=== PATIENT | female | born 1985 | race Caucasian/White ===

== ENCOUNTER 2016-12-07 18:21 | Inpatient (IN) | payer OTHER, BC ==
[~2016-12-07] VITALS: Ht 154.9 cm; Wt 68.8 kg
[~2016-12-07 18:21] MED LIST: ADDERALL20 MG; ADVAIR HFA120 INHALA IH; ALDOMET500 MG PO; AMPHETAMINE SAL20 MG PO; ATROVENT 00.5 MG/2.5 IH; ATROVENT H200 INHALA IH; COLACE50 MG PO; DULERA 100 MCG/13 GM IH; DUONEB 2.5-0.5 M3 ML AEROSOL; ENDOCET 5-3251 EACH PO; FISH OIL 1,001000 M1 PO; FOLIC ACID0.8 MG PO; IBUPROFEN800 MG PO; IMITREX; IMITREX100 MG PO; IMITREX20 MG NS; IMITREX50 MG; LATUDA20 MG PO; LEVO-T88 MCG PO; MORGIDOX100 MG PO; NAPROXEN500 MG PO; NEPHRO-VITE,1 TABLET PO; NUVARING VAGIN1 EACH; PREDNISONE10 MG PO; PRENATAL TABLE1 EAC3 PO; PROAIR HFA8.5 GM IH; PROVENTIL,2.5 MG/0.5 IH; PROVENTIL,2.5 MG/3 M IH; STOOL SOFTENER100 MG PO; SUPER B-50 COM1 EACH PO; SYNTHROID75 MCG PO; TYLENOL WITH C1 EACH PO; VENTOLIN HFA18 GM IH; VENTOLIN17 GM; ZOFRAN ODT8 MG PO; ZYRTEC10 M2 PO; ZYRTEC10 M3 PO; [UNRECOGNIZED DRUG - OTHER]
[2016-12-07 19:22] LABS: EOSINOPHIL (%) 1.8 % (0-5); EOSINOPHIL COUNT 0.2 K/uL (0-0.3); HEMATOCRIT 30.7 % (36.0-46.0); IMMATURE GRANULOCYTE (%) 0.5 % (0.0-0.7); IMMATURE GRANULOCYTE COUNT 0.1 K/uL; INSTRUMENT ABS NEUTROPHIL CT 8.3 K/uL; LYMPHOCYTE COUNT 1.9 K/uL (1.0-2.8); MCH 25.3 PG (29.0-34.0); MCHC 32.6 G/DL (30.0-36.0); MCV 77.7 FL (83-99); MEAN PLAT.VOLUME 10.4 uM^3 (9.5-12.4); MONOCYTE (%) 3.6 % (3-12); MONOCYTE COUNT 0.4 K/uL (0-0.8); NEUTROPHIL (%) 76.2 % (45-76); NEUTROPHIL COUNT 8.3 K/uL (1.8-6.4); PLATELET COUNT 249 K/uL (156-360); RBC DIS.WIDTH-CV 13.9 % (11.8-14.6); RBC DIS.WIDTH-SD 39.7 % (39-53); RED BLOOD COUNT 3.95 M/uL (3.80-5.20); WHITE BLOOD COUNT 10.9 K/uL (4.1-10.2)
[2016-12-07 19:26] LABS: BASE EXCESS -3.2 mEq/L (-3 to +3); BICARBONATE 21.1 mEq/L (22-26); CARBOXY HGB 0.8 % (0-5); METHEMOGLOBIN 0.8 % (0-1.5); PCO2 34 mm Hg (35-45); PO2 252 mm Hg (80-100)
[2016-12-07 19:27] LABS: COMMENTS - BLOOD GASES C+A+; DEVICE NIV; MODE SPONT; PEEP 10 CM/H20; PRES. SUPPORT 10 CM/H2O; SITE RR; TOTAL RESP RATE 26 resp/min
[2016-12-07 19:39] LABS: CHLORIDE 105 mEq/L (99-109); POTASSIUM 3.1 mEq/L (3.7-5.4); SODIUM 136 mEq/L (136-147)
[2016-12-07 19:41] LABS: GLUCOSE 127 mg/dL (70-99)
[2016-12-07 19:42] LABS: ANION GAP 10 MEQ/L (2-14)
[2016-12-07 19:45] LABS: GFR ESTIMATE (CALCULATED) > 59 mL/min/
[2016-12-07 19:46] LABS: UREA NITROGEN (BUN) 7 mg/dL (9-23)
[2016-12-07 19:50] LABS: FI02 30 %
[2016-12-07 21:44] LABS: D-DIMER ELISA 0.22 mg/L FEU (< 0.57)
[2016-12-07] MEDS ORDERED: DUONEB 2.5-0.5 M3 ML AEROSOL (22:13)
[2016-12-07] MEDS ORDERED: PROVENTIL,2.5 MG/3 M IH (22:14)
[2016-12-07] MEDS ORDERED: SYNTHROID112 MCG PO (22:16)
[2016-12-07] MEDS ORDERED: ADVAIR HFA120 INHAL1 IH (22:16)
[2016-12-07] MEDS ORDERED: METFORMIN HCL500 M1 PO (22:17)
[2016-12-07] MEDS ORDERED: PRENATAL TABLE1 EAC3 PO (22:17)
[2016-12-07] MEDS ORDERED: FOLIC ACID0.8 MG PO (22:17)
[2016-12-07 23:31] VITALS: BP 128/81
[2016-12-08] VITALS (17 sets, daily range): BP systolic 106–130; BP diastolic 55–98
[2016-12-08 00:48] LABS: METH RESISTANT S AUREUS PCR NEGATIVE (NEGATIVE)
[2016-12-08 00:53] LABS: PROBE CHECK PASS; SPECIMEN PROCESSING CONTROL PASS
[2016-12-08 05:42] LABS: HEMATOCRIT 29.1 % (36.0-46.0); MCH 25.3 PG (29.0-34.0); MCHC 32.3 G/DL (30.0-36.0); MCV 78.2 FL (83-99); MEAN PLAT.VOLUME 11.9 uM^3 (9.5-12.4); NRBC (%) 0.2 /100 WBC (0-0); PLATELET COUNT 257 K/uL (156-360); RBC DIS.WIDTH-CV 14.5 % (11.8-14.6); RBC DIS.WIDTH-SD 40.9 % (39-53); RED BLOOD COUNT 3.72 M/uL (3.80-5.20); WHITE BLOOD COUNT 12.5 K/uL (4.1-10.2)
[2016-12-08 06:14] LABS: ANION GAP 12 MEQ/L (2-14); CHLORIDE 107 MEQ/L (99-109); GFR ESTIMATE (CALCULATED) > 59 mL/min/; GLUCOSE 126 mg/dL (70-99); SAMPLE HEMOLYSIS CHECK 0; SAMPLE ICTERIC CHECK 0; SAMPLE LIPEMIA CHECK 0; SODIUM 138 MEQ/L (136-147); UREA NITROGEN (BUN) 3 mg/dL (9-23)
[2016-12-08 06:16] LABS: POTASSIUM 4.4 MEQ/L (3.7-5.4)
[2016-12-09] VITALS (8 sets, daily range): BP systolic 101–131; BP diastolic 49–78
[2016-12-09 06:17] LABS: EOSINOPHIL (%) 0 % (0-5); IMMATURE GRANULOCYTE (%) 2.9 % (0.0-0.7); IMMATURE GRANULOCYTE COUNT 0.6 K/uL; INSTRUMENT ABS NEUTROPHIL CT 15.9 K/uL; LYMPHOCYTE COUNT 1.7 K/uL (1.0-2.8); MCH 25.3 PG (29.0-34.0); MCHC 32.5 G/DL (30.0-36.0); MCV 77.8 FL (83-99); MEAN PLAT.VOLUME 11.4 uM^3 (9.5-12.4); MONOCYTE (%) 3.8 % (3-12); MONOCYTE COUNT 0.7 K/uL (0-0.8); NEUTROPHIL (%) 84.4 % (45-76); NEUTROPHIL COUNT 15.9 K/uL (1.8-6.4); PLATELET COUNT 276 K/uL (156-360); RBC DIS.WIDTH-CV 14.6 % (11.8-14.6); RBC DIS.WIDTH-SD 41.1 % (39-53)
[2016-12-09 06:34] LABS: ANION GAP 11 MEQ/L (2-14); CHLORIDE 106 MEQ/L (99-109); GFR ESTIMATE (CALCULATED) > 59 mL/min/; GLUCOSE 126 mg/dL (70-99); POTASSIUM 4.2 MEQ/L (3.7-5.4); SAMPLE HEMOLYSIS CHECK 0; SAMPLE ICTERIC CHECK 0; SAMPLE LIPEMIA CHECK 0; SODIUM 139 MEQ/L (136-147); UREA NITROGEN (BUN) 9 mg/dL (9-23)
[2016-12-09 06:37] LABS: WHITE BLOOD COUNT 18.8 K/uL (4.1-10.2)
[2016-12-10 00:07] VITALS: BP 122/75
[2016-12-10 03:10] VITALS: BP 124/74
[2016-12-10 08:00] VITALS: BP 122/65
[2016-12-10] MEDS ORDERED: DELTASONE20 M1 PO (11:53)
[2016-12-10] MEDS ORDERED: AZITHROMYCIN250 MG1 PO (11:56)
== END 2016-12-10 13:02 | disposition home or self-care (01) | DRG 781 ==
LOC: EME → EDBD 18:21 → 2EAST 22:32 → EDOF 22:32 → 4WEST 22:32 → 2EAST 12-09 08:10
PROVIDERS: Emergency Medicine; Internal Medicine Critical Care Medicine
PROC: 5A09358 Assistance with Respiratory Ventilation, Less than 24 Consecutive Hours, Intermittent Positive Airway Pressure (ICD-10-PCS; principal; 2016-12-08)
DX: O99.511 Diseases of the respiratory system complicating pregnancy, first trimester (principal); J96.01 Acute respiratory failure with hypoxia; J45.901 Unspecified asthma with (acute) exacerbation; O10.911 Unspecified pre-existing hypertension complicating pregnancy, first trimester; O99.281 Endocrine, nutritional and metabolic diseases complicating pregnancy, first trimester; E06.3 Autoimmune thyroiditis; O99.341 Other mental disorders complicating pregnancy, first trimester; F90.9 Attention-deficit hyperactivity disorder, unspecified type; Z3A.12 12 weeks gestation of pregnancy; Z88.1 Allergy status to other antibiotic agents
CPT/HCPCS: 36600; 71010; 80048; 82803; 85025; 85027; 85379; 87070; 87205; 87641; 93005; 94002; 94640 76; 94644; 94645; 94760; 94799; 99202; 99281; 99285; J1100; J1650; J2270; J2930; J3105; J3475; J7644; S0028

== ENCOUNTER → 2017-01-08 | Outpatient (CLI) | payer OTHER, BC ==
[~2017-01-08] MED LIST changes: +ADVAIR HFA120 INHAL1 IH; +AZITHROMYCIN250 MG1 PO; +DELTASONE20 M1 PO; +METFORMIN HCL500 M1 PO; +SYNTHROID112 MCG PO
== END | disposition home or self-care (01) ==
LOC: CDC 12:02
DX: O16.9 Unspecified maternal hypertension, unspecified trimester (principal)
CPT/HCPCS: 93000

== ENCOUNTER 2017-03-03 00:08 | Outpatient (CLI) | payer OTHER, BC ==
[~2017-03-03] VITALS: Ht 154.9 cm; Wt 77.7 kg
[2017-03-03 00:26] VITALS: BP 131/81
[2017-03-03 04:10] VITALS: BP 111/64
[2017-03-03 07:34] VITALS: BP 119/62
[2017-03-03 08:37] VITALS: BP 123/67
== END 2017-03-03 10:09 | disposition home or self-care (01) ==
LOC: LDRP-OP 00:08 → 2WEST 00:09
DX: O9A.212 Injury, poisoning and certain other consequences of external causes complicating pregnancy, second trimester (principal); Z3A.25 25 weeks gestation of pregnancy; W03.XXXA Other fall on same level due to collision with another person, initial encounter; Y93.89 Activity, other specified; Y92.89 Other specified places as the place of occurrence of the external cause
CPT/HCPCS: 59025; 76805; G0378

== ENCOUNTER 2017-04-22 13:56 | Inpatient (IN) | payer OTHER, BC ==
[2017-04-22] VITALS (8 sets, daily range): BP systolic 88–122; BP diastolic 59–71
[~2017-04-22] VITALS: Ht 165.1 cm; Wt 87.5 kg
[2017-04-22 14:15] LABS: EOSINOPHIL (%) 0.8 % (0-5); EOSINOPHIL COUNT 0.1 K/uL (0-0.3); HEMATOCRIT 32.9 % (36.0-46.0); IMMATURE GRANULOCYTE (%) 1.8 % (0.0-0.7); IMMATURE GRANULOCYTE COUNT 0.2 K/uL; INSTRUMENT ABS NEUTROPHIL CT 9.6 K/uL; LYMPHOCYTE COUNT 2.5 K/uL (1.0-2.8); MCH 26.4 PG (29.0-34.0); MCHC 32.2 G/DL (30.0-36.0); MCV 81.8 FL (83-99); MEAN PLAT.VOLUME 11.7 uM^3 (9.5-12.4); MONOCYTE (%) 5.7 % (3-12); MONOCYTE COUNT 0.8 K/uL (0-0.8); NEUTROPHIL (%) 72.4 % (45-76); NEUTROPHIL COUNT 9.6 K/uL (1.8-6.4); PLATELET COUNT 209 K/uL (156-360); RBC DIS.WIDTH-CV 14.6 % (11.8-14.6); RBC DIS.WIDTH-SD 42.7 % (39-53); RED BLOOD COUNT 4.02 M/uL (3.80-5.20); WHITE BLOOD COUNT 13.2 K/uL (4.1-10.2)
[2017-04-22 14:23] LABS: CARBON DIOXIDE (BICARBONATE) 22.5 MEQ/L (20-31)
[2017-04-22 14:35] LABS: CHLORIDE 111 mEq/L (99-109); POTASSIUM 3.6 mEq/L (3.7-5.4); SODIUM 140 mEq/L (136-147)
[2017-04-22 14:37] LABS: GLUCOSE 97 mg/dL (70-99)
[2017-04-22 14:38] LABS: ANION GAP 10 MEQ/L (2-14)
[2017-04-22 14:39] LABS: TOTAL BILIRUBIN 0.1 mg/dL (0.0-1.0)
[2017-04-22 14:40] LABS: ALKALINE PHOSPHATASE 71 IU/L (3-129)
[2017-04-22 14:41] LABS: GFR ESTIMATE (CALCULATED) > 59 mL/min/
[2017-04-22 14:42] LABS: UREA NITROGEN (BUN) 5 mg/dL (9-23)
[2017-04-22 15:04] LABS: TROP-I INTERPRETATION NEGATIVE; TROPONIN-I < 0.01 ng/mL (0.0-0.30)
[2017-04-22] MEDS ORDERED: DIABETA2.5 MG PO (16:25)
[2017-04-22 18:25] LABS: METH RESISTANT S AUREUS PCR NEGATIVE (NEGATIVE)
[2017-04-22 18:48] LABS: PROBE CHECK PASS; SPECIMEN PROCESSING CONTROL PASS
[2017-04-22 22:25] LABS: POINT-OF-CARE METER ID UU13113748
[2017-04-23] VITALS (13 sets, daily range): BP systolic 99–122; BP diastolic 54–74
[2017-04-23 03:42] LABS: POINT-OF-CARE METER ID UU14162636
[2017-04-23 05:26] LABS: HEMATOCRIT 28.9 % (36.0-46.0); MCH 27.1 PG (29.0-34.0); MCHC 32.9 G/DL (30.0-36.0); MCV 82.6 FL (83-99); MEAN PLAT.VOLUME 11.5 uM^3 (9.5-12.4); PLATELET COUNT 201 K/uL (156-360); RBC DIS.WIDTH-CV 15.1 % (11.8-14.6); RBC DIS.WIDTH-SD 44.7 % (39-53); WHITE BLOOD COUNT 15.8 K/uL (4.1-10.2)
[2017-04-23 05:57] LABS: ANION GAP 10 MEQ/L (2-14); CHLORIDE 109 MEQ/L (99-109); GFR ESTIMATE (CALCULATED) > 59 mL/min/; GLUCOSE 106 mg/dL (70-99); MAGNESIUM 1.7 mg/dl (1.3-2.7); POTASSIUM 3.8 MEQ/L (3.7-5.4); SAMPLE HEMOLYSIS CHECK 0; SAMPLE ICTERIC CHECK 0; SAMPLE LIPEMIA CHECK 0; SODIUM 139 MEQ/L (136-147); UREA NITROGEN (BUN) 6 mg/dL (9-23)
[2017-04-23 10:36] LABS: POINT-OF-CARE METER ID UU14162636
[2017-04-23 14:33] LABS: POINT-OF-CARE METER ID UU14162636
[2017-04-23 19:16] LABS: POINT-OF-CARE METER ID UU13113801
[2017-04-23 22:04] LABS: POINT-OF-CARE METER ID UU13113801
[2017-04-24] VITALS (9 sets, daily range): BP systolic 106–129; BP diastolic 56–72
[2017-04-24 07:16] LABS: POINT-OF-CARE METER ID UU13113801; POINT-OF-CARE USER ID 608261309
[2017-04-24 08:54] LABS: POINT-OF-CARE METER ID UU13113801; POINT-OF-CARE USER ID 608261309
[2017-04-24 13:31] LABS: BASE EXCESS -0.6 mEq/L (-3 to +3); BICARBONATE 21.8 mEq/L (22-26); CARBOXY HGB 0.9 % (0-5); METHEMOGLOBIN 1.6 % (0-1.5); PCO2 28 mm Hg (35-45); PO2 270 mm Hg (80-100); SITE LR
[2017-04-24 13:32] LABS: COMMENTS - BLOOD GASES A+C+; DEVICE NRBM; FI02 100 %; O2 FLOW 15 L/MIN
[2017-04-24 14:07] LABS: POINT-OF-CARE METER ID UU13113801; POINT-OF-CARE USER ID 608261309
[2017-04-24 18:00] LABS: POINT-OF-CARE METER ID UU13113801; POINT-OF-CARE USER ID 608261309
[2017-04-24 22:36] LABS: POINT-OF-CARE METER ID UU13113801
[2017-04-25 06:53] LABS: POINT-OF-CARE METER ID UU13113801
[2017-04-25 08:17] VITALS: BP 123/63
[2017-04-25 09:16] LABS: POINT-OF-CARE METER ID UU13113801
[2017-04-25 11:21] VITALS: BP 128/76
[2017-04-25 13:20] LABS: POINT-OF-CARE METER ID UU13113801
[2017-04-25 15:57] VITALS: BP 126/67
[2017-04-25 18:10] LABS: POINT-OF-CARE METER ID UU13113801
[2017-04-25 19:21] VITALS: BP 132/71
[2017-04-25 23:13] VITALS: BP 117/61
[2017-04-26 03:09] VITALS: BP 114/58
[2017-04-26 06:35] LABS: POINT-OF-CARE METER ID UU13113801; POINT-OF-CARE USER ID SNPMEH
[2017-04-26 07:43] VITALS: BP 112/66
[2017-04-26 09:52] LABS: POINT-OF-CARE METER ID UU13113801
[2017-04-26] MEDS ORDERED: PREDNISONE20 MG PO (11:32)
== END 2017-04-26 12:20 | disposition home or self-care (01) | DRG 781 ==
LOC: EME 13:56 → EDOF 15:43 → 4WEST 15:43 → ENRESERV 15:46 → EDOF 15:56 → 4WEST 16:37 → ENRESERV 04-23 15:38 → 2WEST 04-23 19:05
PROVIDERS: Emergency Medicine; Internal Medicine; Internal Medicine Critical Care Medicine; Obstetrics & Gynecology
PROC: 5A09357 Assistance with Respiratory Ventilation, Less than 24 Consecutive Hours, Continuous Positive Airway Pressure (ICD-10-PCS; principal; 2017-04-22)
DX: O99.513 Diseases of the respiratory system complicating pregnancy, third trimester (principal); J96.01 Acute respiratory failure with hypoxia; E06.3 Autoimmune thyroiditis; O99.283 Endocrine, nutritional and metabolic diseases complicating pregnancy, third trimester; O24.419 Gestational diabetes mellitus in pregnancy, unspecified control; J45.901 Unspecified asthma with (acute) exacerbation; O99.013 Anemia complicating pregnancy, third trimester; J44.9 Chronic obstructive pulmonary disease, unspecified; O99.343 Other mental disorders complicating pregnancy, third trimester; F31.9 Bipolar disorder, unspecified; D50.9 Iron deficiency anemia, unspecified; I10 Essential (primary) hypertension; D72.829 Elevated white blood cell count, unspecified; E28.2 Polycystic ovarian syndrome; O12.03 Gestational edema, third trimester; O16.3 Unspecified maternal hypertension, third trimester; F90.9 Attention-deficit hyperactivity disorder, unspecified type; Z82.5 Family history of asthma and other chronic lower respiratory diseases; Z3A.32 32 weeks gestation of pregnancy; Z88.1 Allergy status to other antibiotic agents
CPT/HCPCS: 36600; 71010; 80048; 80053; 82803; 82948; 83735; 83880; 84100; 84484; 85025; 85027; 87641; 93005; 94002; 94640; 94640 76; 94644; 94760; 94799; 99202; 99281; 99285; J1100; J1650; J1815; J2270; J2920; J2930; J3475; J7030; J7040; J7512; J7644

== ENCOUNTER 2017-05-21 11:08 | Outpatient (CLI) | payer OTHER, BC ==
[~2017-05-21] VITALS: Ht 154.9 cm; Wt 87.7 kg
[~2017-05-21 11:08] MED LIST changes: +DIABETA2.5 MG PO; +PREDNISONE20 MG PO
[2017-05-21 11:20] VITALS: BP 132/79
[2017-05-21] MEDS ORDERED: METFORMIN HCL500 MG PO (11:38)
[2017-05-22] MEDS ORDERED: ADVAIR 250/501 DISK IH (14:12)
[2017-05-22] MEDS ORDERED: FISH OIL 1,2001 EAC3 PO (14:14)
[2017-05-22] MEDS ORDERED: GLYBURIDE2.5 MG PO (14:16)
[2017-05-22] MEDS ORDERED: SYNTHROID112 MCG PO (14:17)
== END 2017-05-21 13:05 | disposition home or self-care (01) ==
LOC: LDRP-OP 11:08 → 2WEST 11:09 → LDRP-OP 07-14 00:46
DX: O10.913 Unspecified pre-existing hypertension complicating pregnancy, third trimester (principal); J45.909 Unspecified asthma, uncomplicated; Z3A.36 36 weeks gestation of pregnancy; O34.219 Maternal care for unspecified type scar from previous cesarean delivery
CPT/HCPCS: 59025; G0378; J0702

== ENCOUNTER 2017-05-22 10:56 | Inpatient (IN) | payer OTHER, BC ==
[~2017-05-22] VITALS: Ht 154.9 cm; Wt 87.5 kg
[~2017-05-22 10:56] MED LIST changes: +METFORMIN HCL500 MG PO
[2017-05-22 11:09] VITALS: BP 134/69
[2017-05-22 12:49] VITALS: BP 137/75
[2017-05-22] MEDS ORDERED: ADVAIR 250/501 DISK IH (14:12)
[2017-05-22] MEDS ORDERED: FISH OIL 1,2001 EAC3 PO (14:14)
[2017-05-22] MEDS ORDERED: GLYBURIDE2.5 MG PO (14:16)
[2017-05-22] MEDS ORDERED: SYNTHROID112 MCG PO (14:17)
[2017-05-22 17:37] LABS: EOSINOPHIL (%) 0.1 % (0-5); HEMATOCRIT 31.4 % (36.0-46.0); IMMATURE GRANULOCYTE COUNT 0.6 K/uL; INSTRUMENT ABS NEUTROPHIL CT 11.3 K/uL; MCH 27.1 PG (29.0-34.0); MCHC 32.8 G/DL (30.0-36.0); MCV 82.6 FL (83-99); MEAN PLAT.VOLUME 11.2 uM^3 (9.5-12.4); MONOCYTE COUNT 0.6 K/uL (0-0.8); NEUTROPHIL (%) 77.7 % (45-76); NEUTROPHIL COUNT 11.3 K/uL (1.8-6.4); PLATELET COUNT 183 K/uL (156-360); RBC DIS.WIDTH-CV 15.1 % (11.8-14.6); RBC DIS.WIDTH-SD 45.6 % (39-53); WHITE BLOOD COUNT 14.5 K/uL (4.1-10.2)
[2017-05-22 18:01] VITALS: BP 130/70
[2017-05-22 21:26] VITALS: BP 128/70
[2017-05-22 22:11] VITALS: BP 115/76
[2017-05-22 23:02] VITALS: BP 124/63
[2017-05-23] VITALS (7 sets, daily range): BP systolic 112–133; BP diastolic 56–79
[2017-05-23 07:11] LABS: EOSINOPHIL (%) 0 % (0-5); HEMATOCRIT 28.2 % (36.0-46.0); IMMATURE GRANULOCYTE (%) 2.6 % (0.0-0.7); IMMATURE GRANULOCYTE COUNT 0.4 K/uL; INSTRUMENT ABS NEUTROPHIL CT 11.4 K/uL; LYMPHOCYTE COUNT 2.3 K/uL (1.0-2.8); MCH 27.9 PG (29.0-34.0); MCV 84.7 FL (83-99); MEAN PLAT.VOLUME 11.6 uM^3 (9.5-12.4); MONOCYTE (%) 8.6 % (3-12); MONOCYTE COUNT 1.3 K/uL (0-0.8); NEUTROPHIL (%) 73.8 % (45-76); NEUTROPHIL COUNT 11.4 K/uL (1.8-6.4); PLATELET COUNT 174 K/uL (156-360); RBC DIS.WIDTH-CV 15.1 % (11.8-14.6); RBC DIS.WIDTH-SD 46.1 % (39-53); RED BLOOD COUNT 3.33 M/uL (3.80-5.20); WHITE BLOOD COUNT 15.5 K/uL (4.1-10.2)
[2017-05-24] VITALS (7 sets, daily range): BP systolic 120–144; BP diastolic 69–86
[2017-05-24 11:33] LABS: ADD MIUA? YES; BILIRUBIN NEGATIVE; BLOOD MODERATE; COLOR STRAW ((YELLOW)); GLUCOSE (STRIP) NEGATIVE; KETONES NEGATIVE; LEUKOCYTES NEGATIVE; NITRITE NEGATIVE; PROTEIN (STRIP) NEGATIVE; SPECIFIC GRAVITY 1.008 (1.000-1.030)
[2017-05-24 11:38] LABS: BACTERIA NONE SEEN /HPF; EPITHELIAL CELLS RARE /HPF; MUCUS TRACE /LPF; RED BLOOD CELLS 40-50 /HPF (0-5); WHITE BLOOD CELLS 0-5 /HPF (0-5)
[2017-05-25 03:56] VITALS: BP 122/66
[2017-05-25 08:04] VITALS: BP 135/82
[2017-05-25 11:15] VITALS: BP 137/79
[2017-05-25 15:49] LABS: POINT-OF-CARE METER ID UU13113692
[2017-05-25 16:01] VITALS: BP 133/69
[2017-05-25 19:34] VITALS: BP 143/88
[2017-05-25 22:11] VITALS: BP 138/81
[2017-05-26 02:54] VITALS: BP 141/73
[2017-05-26 07:09] VITALS: BP 123/68
[2017-05-26 14:21] VITALS: BP 136/76
[2017-05-26] MEDS ORDERED: PERCOCET 5/31 TABLET PO (16:00)
[2017-05-26] MEDS ORDERED: MOTRIN800 MG PO (16:00)
== END 2017-05-26 16:49 | disposition home or self-care (01) | DRG 765 ==
LOC: LDRP-OP 10:56 → 2WEST 10:58 → LDRP-OP 14:10 → 2WEST 19:18 → LDRP-OP 07-20 13:25
PROVIDERS: Obstetrics & Gynecology
PROC: 10D00Z1 Extraction of Products of Conception, Low, Open Approach (ICD-10-PCS; principal; 2017-05-22)
DX: O60.14X0 Preterm labor third trimester with preterm delivery third trimester, not applicable or unspecified (principal); O34.211 Maternal care for low transverse scar from previous cesarean delivery; O99.52 Diseases of the respiratory system complicating childbirth; J45.909 Unspecified asthma, uncomplicated; I10 Essential (primary) hypertension; F90.9 Attention-deficit hyperactivity disorder, unspecified type; O99.344 Other mental disorders complicating childbirth; O24.420 Gestational diabetes mellitus in childbirth, diet controlled; O34.219 Maternal care for unspecified type scar from previous cesarean delivery; O99.284 Endocrine, nutritional and metabolic diseases complicating childbirth; O15.1 Eclampsia complicating labor; F31.9 Bipolar disorder, unspecified; E06.3 Autoimmune thyroiditis; O10.92 Unspecified pre-existing hypertension complicating childbirth; Z37.9 Outcome of delivery, unspecified; Z3A.36 36 weeks gestation of pregnancy; Z37.0 Single live birth
CPT/HCPCS: 76818; 81003; 82948; 85025; 86850; 86900; 86901; 87086; 94640; 94640 76; 99202; J1100; J1200; J1580; J2175; J2270; J2274; J2405; J3010; J7120

== ENCOUNTER 2017-06-02 22:24 | Inpatient (IN) | payer OTHER, BC ==
[~2017-06-02] VITALS: Ht 154.9 cm; Wt 80.2 kg
[~2017-06-02 22:24] MED LIST changes: +ADVAIR 250/501 DISK IH; +FISH OIL 1,2001 EAC3 PO; +GLYBURIDE2.5 MG PO; +MOTRIN800 MG PO; +PERCOCET 5/31 TABLET PO
[2017-06-03 00:15] LABS: HEMATOCRIT 33.7 % (36.0-46.0); MCH 26.6 PG (29.0-34.0); MCHC 32.3 G/DL (30.0-36.0); MCV 82.2 FL (83-99); MEAN PLAT.VOLUME 10.8 uM^3 (9.5-12.4); PLATELET COUNT 382 K/uL (156-360); RBC DIS.WIDTH-CV 14.4 % (11.8-14.6); RBC DIS.WIDTH-SD 42.7 % (39-53); WHITE BLOOD COUNT 19.8 K/uL (4.1-10.2)
[2017-06-03 00:26] LABS: CHLORIDE 108 mEq/L (99-109); POTASSIUM 3.5 mEq/L (3.7-5.4); SODIUM 140 mEq/L (136-147)
[2017-06-03 00:28] LABS: GLUCOSE 91 mg/dL (70-99)
[2017-06-03 00:29] LABS: ANION GAP 7 MEQ/L (2-14)
[2017-06-03 00:32] LABS: GFR ESTIMATE (CALCULATED) > 59 mL/min/; UREA NITROGEN (BUN) 20 mg/dL (9-23)
[2017-06-03 04:21] VITALS: BP 122/66
[2017-06-03 06:25] VITALS: BP 114/64
[2017-06-03 06:43] VITALS: BP 116/70
[2017-06-03 07:05] VITALS: BP 119/75
[2017-06-03 11:11] VITALS: BP 126/76
== END 2017-06-03 14:57 | disposition home or self-care (01) | DRG 769 ==
LOC: EME 22:24 → EDOF 06-03 02:43 → ENRESERV 06-03 02:53 → 2EASTP 06-03 04:09
PROVIDERS: Emergency Medicine
PROC: 10D17ZZ Extraction of Products of Conception, Retained, Via Natural or Artificial Opening (ICD-10-PCS; principal; 2017-06-03)
DX: O72.2 Delayed and secondary postpartum hemorrhage (principal); O10.93 Unspecified pre-existing hypertension complicating the puerperium; O99.53 Diseases of the respiratory system complicating the puerperium; J45.909 Unspecified asthma, uncomplicated; O99.285 Endocrine, nutritional and metabolic diseases complicating the puerperium; E03.9 Hypothyroidism, unspecified; O99.345 Other mental disorders complicating the puerperium; F90.9 Attention-deficit hyperactivity disorder, unspecified type; O90.81 Anemia of the puerperium; D64.9 Anemia, unspecified; Z88.0 Allergy status to penicillin
CPT/HCPCS: 76856; 80048; 81003; 85027; 86850; 86900; 86901; 88305; 94640; 99202; 99281; 99284; J1100; J2175; J2250; J2405; J3010; J7120

== ENCOUNTER 2018-02-14 15:39 | Observation (INO) | payer OTHER, BC ==
[~2018-02-14] VITALS: Ht 157.5 cm; Wt 79.8 kg
[2018-02-14 16:03] LABS: BASOPHIL (%) 0.5 % (0-1); BASOPHIL COUNT 0.1 K/uL (0-0.1); EOSINOPHIL (%) 2.7 % (0-5); EOSINOPHIL COUNT 0.3 K/uL (0-0.3); HEMATOCRIT 38.9 % (36.0-46.0); HEMOGLOBIN 13.1 G/DL (11.9-15.5); IMMATURE GRANULOCYTE (%) 0.3 % (0.0-0.7); LYMPHOCYTE (%) 36.8 % (15-42); LYMPHOCYTE COUNT 3.6 K/uL (1.0-2.8); MCH 27.1 PG (29.0-34.0); MCHC 33.7 G/DL (30.0-36.0); MCV 80.5 FL (83-99); MONOCYTE (%) 5.5 % (3-12); MONOCYTE COUNT 0.5 K/uL (0-0.8); NEUTROPHIL (%) 54.2 % (45-76); NEUTROPHIL COUNT 5.3 K/uL (1.8-6.4); RBC DIS.WIDTH-CV 13.2 % (11.8-14.6); RBC DIS.WIDTH-SD 38.5 % (39-53); RED BLOOD COUNT 4.83 M/uL (3.80-5.20); WHITE BLOOD COUNT 9.8 K/uL (4.1-10.2)
[2018-02-14 16:12] LABS: ALBUMIN 4.9 g/dL (3.2-4.8); CHLORIDE 106 mEq/L (99-109); POTASSIUM 3.7 mEq/L (3.7-5.4); SODIUM 143 mEq/L (136-147)
[2018-02-14 16:15] LABS: GLUCOSE 106 mg/dL (70-99); TOTAL PROTEIN 8.1 g/dL (6.4-8.3)
[2018-02-14 16:17] LABS: TOTAL BILIRUBIN 0.3 mg/dL (0.0-1.0)
[2018-02-14 16:18] LABS: ALKALINE PHOSPHATASE 67 IU/L (3-129); CREATININE 0.9 mg/dL (0.6-1.3); GFR ESTIMATE (CALCULATED) > 59 mL/min/
[2018-02-14 16:19] LABS: UREA NITROGEN (BUN) 8 mg/dL (9-23)
[2018-02-14 16:20] LABS: AST (GOT) 14 IU/L (2-34)
[2018-02-14 16:21] LABS: ALT (GPT) 14 IU/L (3-49)
[2018-02-14 16:25] LABS: TROP-I INTERPRETATION NEGATIVE; TROPONIN-I < 0.01 ng/mL (0.0-0.30)
[2018-02-14 16:27] LABS: QUANTITATIVE HCG < 4.0 MIU/ML
[2018-02-14 16:57] LABS: PLAT.SUFFICIENCY DECREASED
[2018-02-14 17:02] LABS: PLATELET COUNT 74 K/uL (156-360)
[2018-02-14] MEDS ORDERED: ASCORBIC ACID500 M3 PO (17:32)
[2018-02-14] MEDS ORDERED: BREO ELLIPTA I1 EACH IH (17:32)
[2018-02-14] MEDS ORDERED: VITAMIN D31000 UNIT PO (17:32)
[2018-02-14] MEDS ORDERED: LATUDA40 MG PO (17:33)
[2018-02-14] MEDS ORDERED: ADDERALL20 MG PO ×3 (17:33)
[2018-02-14] MEDS ORDERED: PROAIR HFA8.5 GM IH (17:34)
[2018-02-14] MEDS ORDERED: IMITREX20 MG NS (17:34)
[2018-02-14 19:41] VITALS: BP 118/72
[2018-02-14 23:51] VITALS: BP 121/69
[2018-02-15 03:25] VITALS: BP 108/67
[2018-02-15 05:36] LABS: HEMOGLOBIN 12.2 G/DL (11.9-15.5); MCH 26.1 PG (29.0-34.0); MCHC 32.1 G/DL (30.0-36.0); MCV 81.4 FL (83-99); RBC DIS.WIDTH-CV 13.7 % (11.8-14.6); RBC DIS.WIDTH-SD 40.4 % (39-53); RED BLOOD COUNT 4.67 M/uL (3.80-5.20); WHITE BLOOD COUNT 12.5 K/uL (4.1-10.2)
[2018-02-15 05:43] LABS: PLATELET COUNT 303 K/uL (156-360)
[2018-02-15 06:00] LABS: CHLORIDE 108 MEQ/L (99-109); CREATININE 0.6 MG/DL (0.6-1.3); GFR ESTIMATE (CALCULATED) > 59 mL/min/; POTASSIUM 4.1 MEQ/L (3.7-5.4); SODIUM 142 MEQ/L (136-147); UREA NITROGEN (BUN) 9 mg/dL (9-23)
[2018-02-15 06:17] LABS: GLUCOSE 183 mg/dL (70-99)
[2018-02-15 07:50] VITALS: BP 141/87
[2018-02-15] MEDS ORDERED: PREDNISONE10 MG PO (09:40)
== END 2018-02-15 11:28 | disposition home or self-care (01) ==
LOC: EME 15:39 → EDOF 17:43 → ENRESERV 17:44 → 4SOUTH 19:28
PROVIDERS: Emergency Medicine; Internal Medicine
DX: J45.901 Unspecified asthma with (acute) exacerbation (principal); R06.03 Acute respiratory distress; I10 Essential (primary) hypertension; F90.9 Attention-deficit hyperactivity disorder, unspecified type; E03.9 Hypothyroidism, unspecified; G40.909 Epilepsy, unspecified, not intractable, without status epilepticus; G43.909 Migraine, unspecified, not intractable, without status migrainosus; F32.9 Major depressive disorder, single episode, unspecified; Z88.1 Allergy status to other antibiotic agents; Z88.8 Allergy status to other drugs, medicaments and biological substances; Z82.5 Family history of asthma and other chronic lower respiratory diseases; Z83.49 Family history of other endocrine, nutritional and metabolic diseases
CPT/HCPCS: 71045; 80048; 80053; 84484; 84702; 85025; 85027; 93005; 94640; 94640 76; 94644; 99202; 99281; 99285; G0378; J1650; J2920; J3475; J7030